=== PATIENT | female | born 1960 | race Two or more races ===

== ENCOUNTER 2016-12-06 21:11 | Emergency (ER) | payer OTHER ==
[~2016-12-06] VITALS: Ht 142.2 cm; Wt 39.0 kg
[2016-12-06] MEDS ORDERED: GABAPENTIN300 MG ORAL (21:19)
[2016-12-06 21:20] VITALS: BP 132/77
--- NOTE | 2016-12-06 21:30 | Emergency Room Report ---
History of Present Illness General Chief Complaint: Vaginal Source: Patient, Family Member Present Illness HPI This is a 56-year-old female with no significant past medical history. She has a prior hysterectomy and is postmenopausal. She presents with chief complaint of vaginal bleeding and dizziness. Onset was around 6 PM. She done through couple packs. [place] dizzy. Denies any pain. No trauma. No fever or chills. no chest pain. No weight loss. Allergies: Coded Allergies: No Known Allergies (Unverified , 12/06/16) Patient History Past Medical History: see triage record, old chart reviewed Past Surgical History: hysterectomy, other Pertinent Family History: none Social History: Denies: smoking Last Menstrual Period: n/a Now: No Immunizations: other Reviewed Nursing Documentation: PMH: Agreed, PSxH: Agreed Nursing Documentation-PMH Past Medical History: No History, Except For Review of Systems Eye: Denies: eye pain, blurred vision ENT: Denies: ear pain, nose congestion, throat swelling Respiratory: Denies: cough, shortness of breath Cardiovascular: Denies: chest pain, palpitations Gastrointestinal: Denies: abdominal pain, diarrhea, nausea, vomiting Musculoskeletal: Denies: back pain, joint pain Skin: Denies: rash Neurological: Denies: headache, numbness Endocrine: Denies: increased thirst, increased urine Hematologic/Lymphatic: Denies: easy bruising All Other Systems: negative except mentioned in HPI Physical Exam Vital Signs Date Time Temp Pulse Resp B/P (MAP) Pulse Ox O2 Delivery O2 Flow Rate FiO2 12/06/16 21:13 97.7 105 16 132/77 98 Room Air vitals normal Sp02 EP Interpretation: reviewed, normal General Appearance: well appearing, no apparent distress, alert Head: normocephalic, atraumatic Eyes: bilateral eye PERRL, bilateral eye EOMI ENT: hearing grossly normal, normal pharynx Neck: full range of motion, supple, no meningismus Respiratory: chest non-tender, lungs clear, normal breath sounds Cardiovascular #1: regular rate, rhythm, no murmur Gastrointestinal: normal bowel sounds, non tender, no mass, no organomegaly, no bruit, non-distended Genitourinary: other - Pelvic exam done with female nurse as a RN. External exam is normal. Internal exam showed a tear along 2:00 position of the vaginal wall. Patient has no trauma or intercourse or any foreign body in the vaginal area. No obvious mass seen. I packed it with two 2 x 2 gauze. Musculoskeletal: back normal, gait/station normal, normal range of motion Psychiatric: mood/affect normal Skin: warm/dry Medical Decision Making Diagnostic Impression: Primary Impression: Vaginal bleeding Additional Impression: Vaginal laceration Qualified Codes: S31.41XA - Laceration without foreign body of vagina and vulva, initial encounter ER Course This patient presents with atraumatic vaginal bleeding. She is postmenopausal and status post hysterectomy 18 years ago. She still bleeding persistently. I did another pelvic exam with female nurse bulldogger. There is brisk bleeding that appear to be arterial on the left wall vagina. I removed the old packing in place new packings in the vaginal vault. Because of the packing and bleeding, I did not do an ultrasound. CT scan showed active vaginal bleeding. No obvious mass. Dr. Ruth Guerra came in to see patient. She agreed with the finding of vaginal laceration. She was able to fix it at bedside. Watch the patient to make sure she stabilize it for discharge him home. No active bleeding anymore. Laboratory Tests Test 12/06/16 21:55 White Blood Count 16.2 K/UL (4.8-10.8) H Red Blood Count 4.31 M/UL (4.20-5.40) Hemoglobin 13.0 G/DL (12.0-16.0) Hematocrit 41.0 % (37.0-47.0) Mean Corpuscular Volume 95 FL (80-99) Mean Corpuscular Hemoglobin 30.1 PG (27.0-31.0) Mean Corpuscular Hemoglobin Concent 31.7 G/DL (32.0-36.0) L Red Cell Distribution Width 12.3 % (11.6-14.8) Platelet Count 277 K/UL (150-450) Mean Platelet Volume 7.8 FL (6.5-10.1) Neutrophils (%) (Auto) 84.5 % (45.0-75.0) H Lymphocytes (%) (Auto) 9.8 % (20.0-45.0) L Monocytes (%) (Auto) 5.1 % (1.0-10.0) Eosinophils (%) (Auto) 0.1 % (0.0-3.0) Basophils (%) (Auto) 0.5 % (0.0-2.0) Urine Color Red Urine Appearance Very cloudy Urine pH 5 (4.5-8.0) Urine Specific [place] 1.020 (1.005-1.035) Urine Protein 3+ (NEGATIVE) H Urine Glucose (UA) Negative (NEGATIVE) Urine Ketones Negative (NEGATIVE) Urine Occult Blood 5+ (NEGATIVE) H Urine Nitrite Negative (NEGATIVE) Urine Bilirubin Negative (NEGATIVE) Urine Urobilinogen Normal MG/DL (0.0-1.0) Urine Leukocyte Esterase 1+ (NEGATIVE) H Urine RBC Tntc /HPF (0 - 2) H Urine WBC 2-4 /HPF (0 - 2) Urine Squamous Epithelial Cells Occasional /LPF Urine Bacteria Occasional /HPF (NONE) Sodium Level 140 MMOL/L (136-145) Potassium Level 3.9 MMOL/L (3.5-5.1) Chloride Level 104 MMOL/L (98-107) Carbon Dioxide Level 25 MMOL/L (21-32) Anion Gap 11 mmol/L (5-15) Blood Urea Nitrogen 15 mg/dL (7-18) Creatinine 0.6 MG/DL (0.55-1.30) Estimat Glomerular Filtration Rate > 60 mL/min (>60) Glucose Level 135 MG/DL (74-106) H Calcium Level 9.0 MG/DL (8.5-10.1) Total Bilirubin 0.4 MG/DL (0.2-1.0) Aspartate Amino Transf (AST/SGOT) 25 U/L (15-37) Alanine Aminotransferase (ALT/SGPT) 24 U/L (12-78) Alkaline Phosphatase 100 U/L (46-116) Total Protein 7.9 G/DL (6.4-8.2) Albumin 4.0 G/DL (3.4-5.0) Globulin 3.9 g/dL Albumin/Globulin Ratio 1.0 (1.0-2.7) Lab Results Impression labs unremarkable CT/MRI/US Diagnostic Results CT/MRI/US Diagnostic Results : Imaging Test Ordered: CT scan of abdomen and pelvis Impression Read by radiologist. The vagina distended and contain blood and packing. Small linear blush is noted suggestive rectal bleeding. Last Vital Signs Date Time Temp Pulse Resp B/P (MAP) Pulse Ox O2 Delivery O2 Flow Rate FiO2 12/06/16 21:13 97.7 105 16 132/77 98 Room Air Status: improved Disposition: HOME, SELF-CARE Condition: Stable Additional Instructions: Followup with your Dr. in 2-3 days for recheck. Return if symptom worsen. BILLIE VARGAS M.D. Dec 06, 2016 21:30
[2016-12-06 22:27] LABS: BASOPHILS % (AUTO) 0.5 % (0.0-2.0); EOSINOPHILS % (AUTO) 0.1 % (0.0-3.0); LYMPHOCYTES % (AUTO) 9.8 % (20.0-45.0); MEAN CORPUSCULAR HEMOGLOBIN 30.1 PG (27.0-31.0); MEAN CORPUSCULAR HGB CONC 31.7 G/DL (32.0-36.0); MEAN CORPUSCULAR VOLUME 95 FL (80-99); MEAN PLATELET VOLUME 7.8 FL (6.5-10.1); MONOCYTES % (AUTO) 5.1 % (1.0-10.0); NEUTROPHILS % (AUTO) 84.5 % (45.0-75.0); PLATELET COUNT 277 K/UL (150-450); RED BLOOD COUNT 4.31 M/UL (4.20-5.40); RED CELL DISTRIBUTION WIDTH 12.3 % (11.6-14.8); WHITE BLOOD COUNT 16.2 K/UL (4.8-10.8)
[2016-12-06 22:28] VITALS: BP 126/75
[2016-12-06 22:30] LABS: APPEARANCE,URINE VERY CLOUDY; KETONES,URINE NEGATIVE (NEGATIVE); LEUKOCYTE ESTERASE ,URINE 1+ (NEGATIVE); NITRITE,URINE NEGATIVE (NEGATIVE); PH,URINE 5 (4.5-8.0); PROTEIN,URINE 3+ (NEGATIVE); UROBILINOGEN,URINE NORMAL MG/DL (0.0-1.0)
[2016-12-06 22:31] LABS: RBC,URINE TNTC /HPF (0 - 2)
[2016-12-06 22:32] LABS: BACTERIA,URINE OCCASIONAL /HPF; SQUAMOUS EPITHELIAL CELL,UR OCCASIONAL /LPF (NONE/OCC)
[2016-12-06 22:36] LABS: ALANINE AMINOTRANSFERASE 24 U/L (12-78); ANION GAP 11 mmol/L (5-15); ASPARTATE AMINO TRANSFERASE 25 U/L (15-37); CARBON DIOXIDE 25 MMOL/L (21-32); CHLORIDE 104 MMOL/L (98-107); CREATININE 0.6 MG/DL (0.55-1.30); GLOMERULAR FILTRATION RATE > 60 mL/min (>60); POTASSIUM 3.9 MMOL/L (3.5-5.1); SODIUM 140 MMOL/L (136-145); TOTAL PROTEIN 7.9 G/DL (6.4-8.2)
[2016-12-06 23:37] VITALS: BP 128/72
[2016-12-07 00:37] LABS: MEAN CORPUSCULAR HEMOGLOBIN 31.7 PG (27.0-31.0); MEAN CORPUSCULAR HGB CONC 34.3 G/DL (32.0-36.0); MEAN CORPUSCULAR VOLUME 92 FL (80-99); MEAN PLATELET VOLUME 8.3 FL (6.5-10.1); PLATELET COUNT 261 K/UL (150-450); RED BLOOD COUNT 3.81 M/UL (4.20-5.40); RED CELL DISTRIBUTION WIDTH 12.4 % (11.6-14.8); WHITE BLOOD COUNT 15.5 K/UL (4.8-10.8)
[2016-12-07 00:39] VITALS: BP 128/72
[2016-12-07 02:10] VITALS: BP 132/76
--- NOTE | 2016-12-07 02:23 | Consultation ---
Consult Note Consult Note GYNECOLOGY CONSULT NOTE - EMERGENCY DEPARTMENT CC: vaginal bleeding, vaginal laceration HPI: Savita is a 56yo s/p hysterectomy 18y ago who presented to the ED with heavy VB that began suddenly while urinating. The patient reports hearing a "pop " and then noting a gush of blood. On arrival to the ED she had soaked through towels at home. On arrival, a large amount of blood and clot was noted in the vault, approx 200-300cc. Vagina was packed with gauze, and patient was noted to continue bleeding despite packing. I was called in to assess. 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 5 gauze removed from vault, saturated with blood. Cervix visualized, no bleeding at os. Active bleeding noted from left lateral wall. Pelvic exam revealed a laceration on the patient's left, no deep defect. Speculum exam revealed that the laceration was approximately 4cm long, at the 2-5 o'clock position, deep sulcal. Vaginal tissue was palpated, no central defect. Labs: 12/06@2155: 16.2>13.0/41.0<277 12/07@0020: 15.5?12.1/35.2<261 Procedure Note: Area cleansed with betadine x3. Speculum secured. 20cc lidocaine with epinephrine injected circumferentially around the laceration. Laceration was repaired with running locked 2-0 vicryl sutures. Once completed, excellent hemostasis was noted. The patient tolerated the procedure well. Assessment/Plan 56 y/o with spontaneous vaginal sulcal laceration, now s/p repair in the ED without complication (see procedure note above) - Observe for signs of hemodynamic instability or further bleeding for 1-2 hours - If the patient remains stable without evidence of symptomatic anemia or additional bleeding, OK for discharge home - Recommend continued pelvic rest for 2 weeks, no baths, and no heavy lifting or squatting for 1-2 weeks. Please feel free to contact me with any questions or concerns. Ruth Guerra MD Gynecology [phone] Ruth Guerra M.D. Dec 07, 2016 02:23
[2016-12-07 03:04] VITALS: BP_SYST 88; BP_SYST 91; BP_DIAS 52
[2016-12-07 04:01] VITALS: BP 92/54
[2016-12-07 05:05] VITALS: BP 114/62
--- NOTE | 2016-12-07 10:14 | Diagnostic Imaging Report ---
Indication: Vaginal bleeding. Comparison: None available. Technique: Utilizing a multislice CT scanner, a CT of the abdomen and pelvis was performed 75 cc Isovue-[address]. [address] scans at this facility use dose modulation, iterative reconstruction, and/or weight based dosing when appropriate to reduce radiation dose to as low as reasonably achievable. CTDIvol (mGy): 9 DLP (mGy-cm): 367 Findings: Lack of intravenous contrast limits evaluation of the visceral and vascular structures. The visualized lung bases are clear. The liver is unremarkable. The gallbladder is unremarkable. The pancreas, spleen and adrenal glands are unremarkable. No obstructing calculus is identified within either kidney, along the expected course of the ureters or within the urinary bladder. No enhancing renal mass is seen. There is no evidence of hydronephrosis or asymmetric perirenal inflammatory change. The urinary bladder is grossly unremarkable. Postsurgical itz are noted in the bilateral pelvis. The uterus is surgically absent. The vagina is distended and contains intermediate and gas density material likely reflecting packing material. Linear hyperdense foci along the periphery of the packing material suggests active extravasation of contrast extending into the lower vagina. Emergent gynecologic/surgical consultation is recommended. Small right inguinal hernia is identified, containing a normal-appearing appendix. The visualized bowel are otherwise grossly unremarkable. There is no evidence of obstruction. There is no extraluminal gas or fluid. There are no enlarged lymph nodes. There is no significant calcified atherosclerotic disease of the the abdominal aorta. Chronic dysplasia of the left hip is identified. Degenerative changes in the lower lumbar spine noted. Impression: 1. Active arterial extravasation in the vagina which contains packing material. Imaging gynecology/surgical consultation is recommended. This finding was communicated by Dr. Goldstein to Dr. Ross at the time of the preliminary reporting at on 12/06/16 23:44. 2. Small right inguinal hernia containing a normal-appearing appendix. 3. Chronic left hip dysplasia.
== END 2016-12-07 05:05 | disposition home or self-care (01) ==
LOC: EMR 22:48
DX: N93.9 Abnormal uterine and vaginal bleeding, unspecified (principal); N89.8 Other specified noninflammatory disorders of vagina; K40.90 Unilateral inguinal hernia, without obstruction or gangrene, not specified as recurrent
CPT/HCPCS: 36415; 74177; 80053; 81003; 85025; 96361; 96374; 99284; Q9967

== ENCOUNTER 2018-10-20 21:29 | Emergency (ER) | payer OTHER ==
[~2018-10-20] VITALS: Ht 172.7 cm; Wt 36.7 kg
[~2018-10-20 21:29] MED LIST: GABAPENTIN300 MG ORAL
[2018-10-20 21:50] VITALS: BP 134/74
--- NOTE | 2018-10-20 21:50 | NUR ---
ED Nurse Note: Patient walked into ED c/o left knee pain, this is a chronic issue however reports of today being much worse. alert and oriented x4, verbally responsive. VSS. Breathing even and unlabored. Family member at bedside.
[2018-10-20] MEDS ORDERED: ACETAMINOPHEN-1 EAC1 ORAL (22:27)
[2018-10-20 22:32] VITALS: BP 134/74
--- NOTE | 2018-10-20 22:32 | NUR ---
ER DISCHARGE NOTE: Patient is cleared to be discharged per ERMD, pt is aox4, on room air, with stable vital signs. pt was given dc and prescription instructions, pt was able to verbalize understanding, pt id band and removed. pt is able to ambulate with steady gait. pt took all belongings.
--- NOTE | 2018-10-21 06:46 | Emergency Room Report ---
History of Present Illness General Chief Complaint: Pain Source: Patient Present Illness HPI 58-year-old female presents ED complaining of left leg pain. Daughter at bedside states that patient has history of chronic pain to the left knee and radiating down the left back radiating down the left leg. Currently takes gabapentin but states is not helping. States that sometimes she has to come to the ER for additional medication. Pain is sharp, 8 out of 10, radiating down the left leg. Denies any numbness or tingling. Denies any bowel or bladder incontinence. Denies any leg or motor weakness Allergies: Coded Allergies: No Known Allergies (Unverified , 12/06/16) Patient History Past Medical History: none Past Surgical History: none Pertinent Family History: none Social History: Denies: smoking, alcohol use, drug use Last Menstrual Period: n/a Now: No Immunizations: UTD Reviewed Nursing Documentation: PMH: Agreed; PSxH: Agreed Nursing Documentation-PMH Past Medical History: No History, Except For Review of Systems All Other Systems: negative except mentioned in HPI Physical Exam Vital Signs Date Time Temp Pulse Resp B/P (MAP) Pulse Ox O2 Delivery O2 Flow Rate FiO2 10/20/18 21:45 98.1 78 18 134/74 (94) 98 Room Air Sp02 EP Interpretation: reviewed, normal General Appearance: no apparent distress, alert, GCS 15, non-toxic Head: normocephalic Eyes: bilateral eye normal inspection, bilateral eye PERRL ENT: normal ENT inspection Neck: normal inspection Respiratory: normal inspection Cardiovascular #1: normal inspection Gastrointestinal: normal inspection Rectal: deferred Genitourinary: no CVA tenderness Musculoskeletal: tender - paraspinal lumbar tenderness Neurologic: alert, oriented x3, responsive, motor strength/tone normal, sensory intact, speech normal Psychiatric: normal inspection Skin: no rash Lymphatic: normal inspection Medical Decision Making Diagnostic Impression: Primary Impression: Chronic knee pain Qualified Codes: M25.562 - Pain in left knee; G89.29 - Other chronic pain ER Course Hospital Course 58 yo F presents to ED c/o back pain radiating down the legs Differential diagnoses include: chronic pain, muscle strain, sciatica Clinical course Patient placed on stretcher. After initial history, his exam reveals female no acute distress. Some paraspinal lumbar tenderness. Positive straight leg raise. 5 out of 5 strength in the legs. Discussed findings with patient. No focal deficits. Will add short course of Tylenol with codeine. Patient will follow-up with her PMD Diagnosis - chronic knee pain Stable and discharged to home with Rx for Tylenol #3. Followup with PMD. Return to ED if symptoms recur or worsen Last Vital Signs Date Time Temp Pulse Resp B/P (MAP) Pulse Ox O2 Delivery O2 Flow Rate FiO2 10/20/18 22:32 98.1 78 18 134/74 98 Room Air Status: improved Disposition: HOME, SELF-CARE Condition: Stable Scripts Acetaminophen With Codeine (T#3) (TYLENOL #3 TAB*) Y Tab 1 TAB ORAL Q8H PRN for For Pain, #12 TAB Prov: Kleber Diaz MD 10/20/18 Referrals: [facility]ERR[facility] (PCP) Patient Instructions: Chronic Pain Kleber Diaz MD Oct 21, 2018 06:46
== END 2018-10-20 22:32 | disposition home or self-care (01) ==
LOC: EMR 22:01
DX: G89.29 Other chronic pain (principal); M25.562 Pain in left knee
CPT/HCPCS: 99282

== ENCOUNTER 2020-01-02 21:39 | Emergency (ER) | payer OTHER ==
[~2020-01-02] VITALS: Ht 134.6 cm; Wt 40.8 kg
[~2020-01-02 21:39] MED LIST changes: +ACETAMINOPHEN-1 EAC1 ORAL
--- NOTE | 2020-01-02 21:55 | NUR ---
ED Nurse Note: Patient brought into the ED by daughter from home due to anxiety attack onset a few hours ago. Per pt's daughter she has history of anxiety attacks and take Temazepam 30mg. Pt denies SI/HI, delusions/hallucinations.
--- NOTE | 2020-01-02 21:56 | NUR ---
ED Nurse Note: Pt also c/o of chest tightness and palpitation accompanied by the anxiety
--- NOTE | 2020-01-02 22:00 | NUR ---
ED Nurse Note: ERMD at bedside
--- NOTE | 2020-01-02 22:14 | Emergency Room Report ---
History of Present Illness General Chief Complaint: General Complaint Source: Patient Present Illness HPI This is a 59-year-old female with no past medical history. She does have a psychiatric history of anxiety. She presents with chief complaint of palpitation and anxiety. This been ongoing for over a month but more constant today. [place] tightness in her chest. Described as fluttering sensation in her chest. No shortness of breath. No fever chills but no nausea no vomiting. No exertional component. No pain. Allergies: Coded Allergies: No Known Allergies (Unverified , 12/06/16) COVID-19 Screening Contact w/high risk pt: No Experienced COVID-19 symptoms?: No COVID-19 Testing performed WATCH ASSEMBLER: No Patient History Past Medical History: see triage record, old chart reviewed Past Surgical History: none Pertinent Family History: none Social History: Denies: smoking Now: No Immunizations: other Reviewed Nursing Documentation: PMH: Agreed; PSxH: Agreed Review of Systems Eye: Denies: eye pain, blurred vision ENT: Denies: ear pain, nose congestion, throat swelling Respiratory: Denies: cough, shortness of breath Cardiovascular: Reports: chest pain, palpitations Gastrointestinal: Denies: abdominal pain, diarrhea, nausea, vomiting Musculoskeletal: Denies: back pain, joint pain Skin: Denies: rash Neurological: Denies: headache, numbness Endocrine: Denies: increased thirst, increased urine Hematologic/Lymphatic: Denies: easy bruising All Other Systems: negative except mentioned in HPI Physical Exam Vital Signs Date Time Temp Pulse Resp B/P (MAP) Pulse Ox O2 Delivery O2 Flow Rate FiO2 01/02/20 21:51 97.9 93 20 139/77 (97) 96 Room Air Vitals normal Sp02 EP Interpretation: reviewed, normal General Appearance: well appearing, no apparent distress, alert, other - Very short stature Head: normocephalic, atraumatic Eyes: bilateral eye PERRL, bilateral eye EOMI ENT: hearing grossly normal, normal pharynx Neck: full range of motion, supple, no meningismus Respiratory: chest non-tender, lungs clear, normal breath sounds Cardiovascular #1: regular rate, rhythm, no murmur Gastrointestinal: normal bowel sounds, non tender, no mass, no organomegaly, no bruit, non-distended Musculoskeletal: back normal, normal range of motion, gait/station normal Psychiatric: mood/affect normal Medical Decision Making Diagnostic Impression: Primary Impression: Anxiety ER Course Patient presents with symptom consistent with anxiety. No suicidal thoughts or homicidal thought. No delusion hallucination. Her palpitation and chest pressure have been ongoing all day. Troponin is negative. EKG is unremarkable. Better after Ativan. Will discharge home. EKG Diagnostic Results Troponin ordered: Yes Rate: normal Rhythm: NSR ST Segments: no acute changes Last Vital Signs Date Time Temp Pulse Resp B/P (MAP) Pulse Ox O2 Delivery O2 Flow Rate FiO2 01/02/20 21:51 97.9 93 20 139/77 (97) 96 Room Air Status: improved Disposition: HOME, SELF-CARE Condition: Stable Scripts Lorazepam* (ATIVAN*) 0.5 Mg Tablet 0.5 MG ORAL THREE TIMES A DAY, #30 TAB Prov: Josh Ross MD 01/02/20 Additional Instructions: Follow-up with your doctor in 7 days. Return if symptoms worsen. Josh Ross MD Jan 02, 2020 22:14
[2020-01-02] MEDS ORDERED: Aspirin Baby 81mg ORAL ONE (22:15)
[2020-01-02] MEDS ORDERED: LORazepam Inj 2mg/ml 1ml IV ONE (22:15)
--- NOTE | 2020-01-02 22:22 | NUR ---
ED Nurse Note: Blood sent to lab
[2020-01-02 22:35] VITALS: BP 139/77
[2020-01-02 22:52] LABS: BASOPHILS % (AUTO) 1.3 % (0.0-2.0); EOSINOPHILS % (AUTO) 0.3 % (0.0-3.0); HEMATOCRIT 43.2 % (37.0-47.0); HEMOGLOBIN 14.5 G/DL (12.0-16.0); LYMPHOCYTES % (AUTO) 20.9 % (20.0-45.0); MEAN CORPUSCULAR VOLUME 96 FL (80-99); NEUTROPHILS % (AUTO) 71.4 % (45.0-75.0); PLATELET COUNT 243 K/UL (150-450); RED BLOOD COUNT 4.51 M/UL (4.20-5.40); RED CELL DISTRIBUTION WIDTH 12.8 % (11.6-14.8)
[2020-01-02 23:05] LABS: ANION GAP 9 mmol/L (5-15); BLOOD UREA NITROGEN 18 mg/dL (7-18); CALCIUM 8.6 MG/DL (8.5-10.1); CARBON DIOXIDE 26 MMOL/L (21-32); CHLORIDE 101 MMOL/L (98-107); CREATININE 0.8 MG/DL (0.55-1.30); POTASSIUM 3.6 MMOL/L (3.5-5.1); SODIUM 136 MMOL/L (136-145)
[2020-01-02 23:08] LABS: ALANINE AMINOTRANSFERASE 53 U/L (12-78); ALBUMIN 4.2 G/DL (3.4-5.0); ALKALINE PHOSPHATASE 126 U/L (46-116); ASPARTATE AMINO TRANSFERASE 58 U/L (15-37); BILIRUBIN,TOTAL 0.4 MG/DL (0.2-1.0)
[2020-01-02] MEDS ORDERED: ATIVAN0.5 MG ORAL (23:37)
[2020-01-02 23:59] VITALS: BP 139/77
--- NOTE | 2020-01-02 23:59 | NUR ---
ER DISCHARGE NOTE: Patient is cleared to be discharged per ERMD, pt is aox4, on room air, with stable vital signs. pt was given dc and prescription instructions, pt was able to verbalize understanding, pt id band and iv site removed without complications. pt is able to ambulate with steady gait. pt took all belongings.
== END 2020-01-03 00:02 | disposition home or self-care (01) ==
LOC: EMR 22:14
DX: F41.9 Anxiety disorder, unspecified (principal)
CPT/HCPCS: 36415; 80053; 84484; 85025; 93005; 96374; Z7502; 99284